=== PATIENT | male | born 2000 | race Native Hawaiian/Other Pacific Islander ===

== ENCOUNTER 2021-09-15 02:27 | Emergency (ER) | payer OTHER ==
--- NOTE | 2021-09-15 02:53 | ED Physician Documentation ---
History of Present Illness - Stated complaint Stated Complaint: CHEST PX - Chief complaint Chief Complaint: General - History obtained from History obtained from: Patient - Additonal information Additional information: 21-year-old healthy gentleman who is active duty in the [employer] has had 2 months of on and off left anterior chest pain. He notices it most when he wakes up in the morning and is generally getting worse. It is not exertional nor associated with eating. He does not get sweaty or nauseous with it. Family history is notable for multiple family members with hypertension. Review of Systems Ten Systems: 10 systems reviewed and negative Constitutional: denies: Fever, Chills, Fatigue Cardiac: denies: Palpitations Respiratory: reports: Dyspnea. denies: Cough Musculoskeletal: denies: Pain with weight bearing PD PAST MEDICAL HISTORY - Present Medications Home Medications: Ambulatory Orders Medication Instructions Recorded Confirmed Metoprolol Succinate [Toprol Xl] 50 mg 09/15/21 Pregabalin [Lyrica] 300 mg 09/15/21 - Allergies Allergies/Adverse Reactions: Allergies Allergy/AdvReac Type Severity Reaction Status Date / Time No Known Drug Allergies Allergy Verified 09/15/21 03:08 PD ED PE NORMAL - Vitals Vital signs reviewed: Yes - General General: Alert and oriented X 3, No acute distress - HEENT HEENT: PERRL, EOMI - Neck Neck: Supple, no meningeal sign, No bony TTP - Cardiac Cardiac: RRR, No murmur - Respiratory Respiratory: No respiratory distress, Clear bilaterally - Abdomen Abdomen: Non tender - Extremities Extremities: No edema, No calf tenderness / cord - Neuro Neuro: Alert and oriented X 3, Normal speech Results - Vitals Vitals: Vital Signs - 24 hr 09/15/21 09/15/21 02:39 03:03 Temperature 37.3 C 36.9 C Heart Rate 85 97 Respiratory 17 20 Rate Blood Pressure 154/102 H 164/100 H O2 Saturation 99 99 Oxygen O2 Source Room air - EKG (time done) 0249 Rate: Rate (enter#) (74) Rhythm: NSR [place]: Normal Intervals: Normal VT QRS: Normal Ischemia: ST elevation c/w repol. No: ST elevation c/w ischemia, ST depression - Labs Labs: Laboratory Tests 09/15/21 09/15/21 09/15/21 02:55 02:55 02:55 WBC 8.8 RBC 5.33 Hgb 16.1 Hct 46.1 MCV 86.5 MCH 30.2 MCHC 34.9 RDW 12.0 Plt Count 205 MPV 9.3 Neut # (Auto) 4.7 Lymph # (Auto) 3.0 [place] # (Auto) 0.7 Eos # (Auto) 0.3 Baso # (Auto) 0.1 Absolute Nucleated RBC 0.00 Nucleated RBC % 0.0 Sodium 136 Potassium 3.3 L Chloride 101 Carbon Dioxide 24 Anion Gap 11.0 BUN 14 Creatinine 1.0 Estimated GFR (MDRD) 94 Glucose 106 H Calcium 9.0 Total Bilirubin 0.7 AST 20 ALT 16 Alkaline Phosphatase 64 Troponin I High Sens 4.2 Total Protein 7.2 Albumin 4.4 Globulin 2.8 Albumin/Globulin Ratio 1.6 Lipase 27 - Rads (name of study) 2v cxr Radiology: EMP read contemporaneously (NAD) PD MEDICAL DECISION MAKING - ED course ED course: HEART zero Departure - Departure Disposition: 01 Home, Self Care Clinical Impression: Chest pain Qualifiers: Chest pain type: unspecified Qualified Code(s): R07.9 - Chest pain, unspecified Condition: Good Record reviewed to determine appropriate education?: Yes Instructions: ED Chest Pain Atypical Unkn Cause Print Language: Lebanese Comments: Work-up today is unremarkable and it does not look like there is anything active going on with your heart. I would definitely ask you to [place]. Return for new or worsening symptoms. Specifically chest x-ray, troponin, and other basic labs and EKG are unremarkable. Discharge Date/Time: 09/15/21 03:39
[2021-09-15 03:02] LABS: BASOPHILS # (AUTO) 0.1 10^3/uL (0.0-0.1); BASOPHILS % (AUTO) 0.9 %; EOSINOPHILS # (AUTO) 0.3 10^3/uL (0.0-0.7); EOSINOPHILS % (AUTO) 3.1 %; HCT - HEMATOCRIT 46.1 % (42.0-52.0); HGB - HEMOGLOBIN 16.1 g/dL (14.0-18.0); LYMPHOCYTES % (AUTO) 34.4 %; MEAN CORPUSCULAR HEMOGLOBIN 30.2 pg (27.0-31.0); MEAN CORPUSCULAR HGB CONC 34.9 g/dL (32.0-36.0); MEAN CORPUSCULAR VOLUME 86.5 fL (80.0-94.0); MEAN PLATELET VOLUME 9.3 fL (7.4-11.4); MONOCYTES # (AUTO) 0.7 10^3/uL (0.0-1.0); MONOCYTES % (AUTO) 7.8 %; NEUTROPHILS # (AUTO) 4.7 10^3/uL (1.5-6.6); NEUTROPHILS % (AUTO) 53.6 %; PLT - PLATELET COUNT 205 10^3/uL (130-450); RED BLOOD COUNT 5.33 10^6/uL (4.70-6.10); WHITE BLOOD COUNT 8.8 x10^3/uL (4.8-10.8)
[2021-09-15 03:15] LABS: ALBUMIN 4.4 g/dL (3.2-5.5); ALBUMIN/GLOBULIN RATIO 1.6 (1.0-2.2); BILIRUBIN,TOTAL 0.7 mg/dL (0.2-1.0); POTASSIUM 3.3 mmol/L (3.5-5.0); TOTAL PROTEIN 7.2 g/dL (6.7-8.2)
[2021-09-15 03:47] VITALS: BP 138/56
--- NOTE | 2021-09-15 07:59 | XRAY Report ---
PROCEDURE: Chest 2 View X-Ray INDICATIONS: chest pain TECHNIQUE: 2 view(s) of the chest. COMPARISON: None. FINDINGS: Surgical changes and devices: None. Lungs and pleura: No pleural effusions or pneumothorax. Lungs are clear. Mediastinum: Mediastinal contours are normal. Heart size is normal. Bones and chest wall: No suspicious bony abnormalities. Soft tissues appear unremarkable. IMPRESSION: No acute cardiopulmonary disease. Reviewed by: Lambert Montes MD on 09/15/2021 7:58 AM [facility] Approved by: Lambert Montes MD on 09/15/2021 7:58 AM [facility] Station ID: [id number]
== END 2021-09-15 03:39 | disposition home or self-care (01) ==
LOC: ED 02:27
DX: R07.89 Other chest pain (principal)
CPT/HCPCS: 36415; 80053; 83690; 84484; 85025; 93005; 99283; 99284